=== PATIENT | male | born 1945 | race Caucasian/White ===

== ENCOUNTER → 2017-06-04 | Outpatient (CLI) | payer MEDICARE ==
[~2017-06-04] MED LIST: ASPI-496 PO; CARV12.52 PO; CHOL500015 PO; DOCU100T3 PO; LACT1CAP61 PO; LISI-170 PO; METO10TA2 PO; MULT-82 PO; NITR0.4T SL; OMEP-110 PO; POLY454P3 PO
[2017-06-04 12:50] LABS: ASPARTATE AMINO TRANSFERASE 11 U/L (15-37); BLOOD UREA NITROGEN 23 mg/dL (7-18)
== END | disposition home or self-care (01) ==
LOC: STAR 11:38
PROVIDERS: ATTEND Orthopaedic Surgery
DX: Z01.818 Encounter for other preprocedural examination (principal); M17.12 Unilateral primary osteoarthritis, left knee
CPT/HCPCS: 36415; 80053; 81003; 85025; 87081; 93005

== ENCOUNTER 2017-06-09 06:23 | Inpatient (IN) | payer MEDICARE ==
[~2017-06-09] VITALS: Ht 180.3 cm; Wt 112.5 kg
[2017-06-09] MEDS ORDERED: KETOROLAC 60 MG/2 ML ONE (06:45)
[2017-06-09] MEDS ORDERED: TRANEXAMIC ACID 100 MG/ML, 10ML ONE (06:45)
[2017-06-09] MEDS ORDERED: VANCOMYCIN 1,000 MG ONE (06:45)
[2017-06-09] MEDS ORDERED: ROPIvacaine/PF 0.2%, 20 ML ONE (06:45)
[2017-06-09] MEDS ORDERED: EPINEPHRINE 1 MG/ML, 1ML ONE (06:46)
[2017-06-09] MEDS ORDERED: SODIUM CHLORIDE 0.9% 50 ML ONE (06:46)
[2017-06-09] MEDS ORDERED: ROPIvacaine/PF 0.5%, 20 ML ONE (06:51)
[2017-06-09] MEDS ORDERED: LACTATED RINGERS 1,000 ML IV SCH (07:10)
[2017-06-09 07:12] VITALS: BP 108/70
[2017-06-09] MEDS ORDERED: LIDOCAINE 1%, 2ML SQ PRN (07:30)
[2017-06-09] MEDS ORDERED: MIDAZOLAM 1 MG/ML, 2ML ONE (08:01)
[2017-06-09] MEDS ORDERED: FENTANYL PF 250 MCG/5ML ONE (08:01)
[2017-06-09] MEDS ORDERED: CEFAZOLIN 1,000 MG ONE (09:06)
[2017-06-09] MEDS ORDERED: DEXAMETHASONE 4 MG/ML, 1ML ONE (09:06)
[2017-06-09] MEDS ORDERED: ONDANSETRON 2MG/ML, 2ML ONE (09:06)
[2017-06-09] MEDS ORDERED: PROPOFOL 10 MG/ML, 20ML ONE (09:06)
[2017-06-09] MEDS ORDERED: PROMETHAZINE 25 MG/ML, 1ML IV PRN (10:00)
[2017-06-09] MEDS ORDERED: EPHEDRINE 50 MG/ML, 1ML IVPush PRN (10:00)
[2017-06-09] MEDS ORDERED: METOPROLOL 1 MG/ML, 5ML IV PRN (10:00)
[2017-06-09] MEDS ORDERED: ONDANSETRON 2MG/ML, 2ML IVPush PRN (10:00)
[2017-06-09] MEDS ORDERED: HYDROcodone/APAP 7.5-325MG/15ML UDC PO PRN (10:00)
[2017-06-09] MEDS ORDERED: ACETAMINOPHEN 325 MG TABLET PO PRN (10:00)
[2017-06-09] MEDS ORDERED: LABETALOL 5MG/ML, 20ML IV PRN (10:00)
[2017-06-09] MEDS ORDERED: HYDROmorphone 1 MG/ML, 1ML IV PRN ×2 (10:00→11:00)
[2017-06-09] MEDS ORDERED: hydrALAzine 20 MG/ML, 1ML IV PRN (10:00)
[2017-06-09] MEDS ORDERED: FENTANYL PF 100 MCG/2ML IV PRN (10:00)
[2017-06-09] MEDS ORDERED: ALBUTEROL SULFATE 2.5 MG/3 ML NPPB PRN (10:00)
[2017-06-09] MEDS ORDERED: OXYcodone 5 MG/5 ML ORAL.SOL UDC PO PRN (10:00)
[2017-06-09] MEDS ORDERED: DIAZEPAM 5 MG TABLET PO PRN (11:00)
[2017-06-09] MEDS ORDERED: ALUMINUM/MAG/SIMETHICONE 30 ML UDC PO PRN (11:00)
[2017-06-09] MEDS ORDERED: ONDANSETRON 4 MG TABLET PO PRN (11:00)
[2017-06-09] MEDS ORDERED: PROMETHAZINE 12.5 MG SUPP PR PRN (11:00)
[2017-06-09] MEDS ORDERED: ONDANSETRON 2MG/ML, 2ML IV PRN (11:00)
[2017-06-09] MEDS ORDERED: DIPHENHYDRAMINE 50 MG CAPSULE PO PRN (11:00)
[2017-06-09] MEDS ORDERED: PROMETHAZINE 25 MG/ML, 1ML IM PRN (11:00)
[2017-06-09] MEDS ORDERED: BISACODYL 10 MG SUPP PR PRN (11:00)
[2017-06-09] MEDS ORDERED: ZOLPIDEM 5MG TABLET PO PRN (11:00)
[2017-06-09] MEDS: HYDROcodone/APAP 10/325 MG TABLET PO SCH ×4 (11:00→22:30)
[2017-06-09] MEDS ORDERED: SCOPOLAMINE PATCH, 1.5MG PATCH.TD72 TD SCH (11:00)
[2017-06-09] MEDS ORDERED: ACETAMINOPHEN 650 MG/20.3 ML UDC PO PRN (11:00)
[2017-06-09] MEDS ORDERED: TRANEXAMIC ACID 1,000 MG in SODIUM CHLORIDE 0.9% 100 ML IVPB ONE (11:15)
[2017-06-09] MEDS: DOCUSATE 100 MG CAPSULE PO SCH ×3 (12:00→22:13)
[2017-06-09] MEDS: MAGNESIUM HYDROXIDE 8%, 30ML UDC PO SCH (14:00)
[2017-06-09] MEDS: TAMSULOSIN 0.4 MG CAP.ER.24H PO SCH (14:48)
[2017-06-09] MEDS: D5%-0.45% NACL 1,000 ML IV SCH ×2 (14:49→23:07)
[2017-06-09 14:56] VITALS: BP 130/85
[2017-06-09] MEDS ORDERED: NITROGLYCERIN 0.4 MG BOTTLE (25 TABS) SL SCH (15:30)
[2017-06-09] MEDS: CEFAZOLIN PMX 2GM/50ML 50 ML IVPB SCH (17:45)
[2017-06-09] MEDS: METOCLOPRAMIDE 10MG TABLET PO SCH ×2 (17:45→22:13)
[2017-06-09] MEDS: SENNA/DOCUSATE TABLET PO SCH (17:45)
[2017-06-09 21:09] VITALS: BP 129/72
[2017-06-09] MEDS: PREGABALIN 75 MG CAPSULE PO SCH (22:13)
[2017-06-09] MEDS: CARVEDILOL 12.5 MG TABLET PO SCH (22:14)
[2017-06-09 22:15] VITALS: BP 127/65
[2017-06-10] MEDS: CEFAZOLIN PMX 2GM/50ML 50 ML IVPB SCH (01:06)
[2017-06-10 02:30] VITALS: BP 113/65
[2017-06-10] MEDS: HYDROcodone/APAP 10/325 MG TABLET PO SCH ×3 (02:30→10:30)
[2017-06-10 05:05] LABS: HEMATOCRIT 31.6 % (39.2-51.8); HEMOGLOBIN 10.4 g/dL (13.7-18.0)
[2017-06-10] MEDS ORDERED: DEXAMETHASONE 4 MG/ML, 1ML IVPush SCH (06:00)
[2017-06-10] MEDS: ASPIRIN 81 MG TABLET EC PO SCH (06:30)
[2017-06-10] MEDS: D5%-0.45% NACL 1,000 ML IV SCH ×3 (07:00→22:38)
[2017-06-10] MEDS: POLYETHYLENE GLYCOL 17 GM PACKET PO SCH (08:52)
[2017-06-10] MEDS: TAMSULOSIN 0.4 MG CAP.ER.24H PO SCH (08:52)
[2017-06-10] MEDS: OMEPRAZOLE 20 MG CAPSULE.DR PO SCH (08:52)
[2017-06-10] MEDS: PREGABALIN 75 MG CAPSULE PO SCH ×2 (08:52→21:24)
[2017-06-10] MEDS: LISINOPRIL 20 MG TABLET PO SCH (08:52)
[2017-06-10] MEDS: DOCUSATE 100 MG CAPSULE PO SCH ×3 (08:53→21:18)
[2017-06-10] MEDS: CARVEDILOL 12.5 MG TABLET PO SCH ×2 (08:53→21:26)
[2017-06-10] MEDS: SENNA/DOCUSATE TABLET PO SCH (08:53)
[2017-06-10] MEDS: METOCLOPRAMIDE 10MG TABLET PO SCH ×3 (08:53→21:19)
[2017-06-10] MEDS: MAGNESIUM HYDROXIDE 8%, 30ML UDC PO SCH (08:53)
[2017-06-10] MEDS: MULTIVITAMINS/MINERALS TABLET PO SCH (08:53)
[2017-06-10 08:59] VITALS: BP 118/78
[2017-06-10] MEDS: KETOROLAC 30 MG/1 ML IV SCH ×2 (10:57→18:44)
[2017-06-10] MEDS: HYDROcodone/APAP 10/325 MG TABLET PO PRN (13:24)
[2017-06-10 14:57] VITALS: BP 111/62
[2017-06-10 18:25] VITALS: BP 153/41
[2017-06-10 21:26] VITALS: BP 128/62
[2017-06-11 03:47] VITALS: BP 123/68
[2017-06-11 04:58] LABS: HEMATOCRIT 32.1 % (39.2-51.8); HEMOGLOBIN 10.7 g/dL (13.7-18.0)
[2017-06-11] MEDS: ASPIRIN 81 MG TABLET EC PO SCH (05:37)
[2017-06-11] MEDS: D5%-0.45% NACL 1,000 ML IV SCH ×3 (06:11→21:26)
[2017-06-11 08:00] VITALS: BP 120/65
[2017-06-11] MEDS: PREGABALIN 75 MG CAPSULE PO SCH ×2 (08:59→20:30)
[2017-06-11] MEDS: POLYETHYLENE GLYCOL 17 GM PACKET PO SCH (08:59)
[2017-06-11] MEDS: OMEPRAZOLE 20 MG CAPSULE.DR PO SCH (08:59)
[2017-06-11] MEDS: MAGNESIUM HYDROXIDE 8%, 30ML UDC PO SCH (08:59)
[2017-06-11] MEDS: CARVEDILOL 12.5 MG TABLET PO SCH ×2 (08:59→20:30)
[2017-06-11] MEDS: LISINOPRIL 20 MG TABLET PO SCH (09:00)
[2017-06-11] MEDS: SENNA/DOCUSATE TABLET PO SCH (09:00)
[2017-06-11] MEDS: METOCLOPRAMIDE 10MG TABLET PO SCH ×3 (09:00→20:30)
[2017-06-11] MEDS: MULTIVITAMINS/MINERALS TABLET PO SCH (09:00)
[2017-06-11] MEDS: TAMSULOSIN 0.4 MG CAP.ER.24H PO SCH (09:00)
[2017-06-11] MEDS: DOCUSATE 100 MG CAPSULE PO SCH ×3 (09:00→20:30)
[2017-06-11] MEDS: HYDROcodone/APAP 10/325 MG TABLET PO PRN (09:08)
[2017-06-11] MEDS ORDERED: HYDR-3144 PO (10:47)
[2017-06-11 10:50] LABS: HEMATOCRIT 32.8 % (39.2-51.8); HEMOGLOBIN 10.9 g/dL (13.7-18.0)
[2017-06-11 11:13] LABS: BLOOD UREA NITROGEN 16 mg/dL (7-18)
[2017-06-11 15:48] VITALS: BP 105/67
[2017-06-11 20:06] VITALS: BP 128/75
[2017-06-12 02:51] VITALS: BP 119/61
[2017-06-12 04:55] LABS: HEMATOCRIT 32.3 % (39.2-51.8); HEMOGLOBIN 10.8 g/dL (13.7-18.0)
[2017-06-12] MEDS: HYDROcodone/APAP 10/325 MG TABLET PO PRN (06:21)
[2017-06-12] MEDS: ASPIRIN 81 MG TABLET EC PO SCH (06:21)
[2017-06-12] MEDS: D5%-0.45% NACL 1,000 ML IV SCH (06:23)
[2017-06-12 06:32] VITALS: BP 120/65
[2017-06-12] MEDS: METOCLOPRAMIDE 10MG TABLET PO SCH (08:10)
[2017-06-12] MEDS: DOCUSATE 100 MG CAPSULE PO SCH (08:10)
[2017-06-12] MEDS: PREGABALIN 75 MG CAPSULE PO SCH (08:10)
[2017-06-12] MEDS: CARVEDILOL 12.5 MG TABLET PO SCH (08:10)
[2017-06-12] MEDS: POLYETHYLENE GLYCOL 17 GM PACKET PO SCH (08:10)
[2017-06-12] MEDS: OMEPRAZOLE 20 MG CAPSULE.DR PO SCH (08:10)
[2017-06-12] MEDS: TAMSULOSIN 0.4 MG CAP.ER.24H PO SCH (08:11)
[2017-06-12] MEDS: MULTIVITAMINS/MINERALS TABLET PO SCH (08:11)
[2017-06-12] MEDS: LISINOPRIL 20 MG TABLET PO SCH (08:11)
[2017-06-12] MEDS: MAGNESIUM HYDROXIDE 8%, 30ML UDC PO SCH (08:13)
[2017-06-12] MEDS ORDERED: SENNA/DOCUSATE TABLET PO SCH (09:00)
[2017-06-12 12:59] VITALS: BP 123/75
== END 2017-06-12 14:19 | disposition home or self-care (01) | DRG 469 ==
LOC: ORIP 06:23 → 4NOR 12:14 → DCLOUNGE 06-12 13:30
PROVIDERS: ADMIT Orthopaedic Surgery; ATTEND Orthopaedic Surgery
PROC: 0SRD0J9 Replacement of Left Knee Joint with Synthetic Substitute, Cemented, Open Approach (ICD-10-PCS; principal; 2017-06-09 09:15)
DX: M17.12 Unilateral primary osteoarthritis, left knee (principal); J96.01 Acute respiratory failure with hypoxia; I42.9 Cardiomyopathy, unspecified; E66.9 Obesity, unspecified; G47.33 Obstructive sleep apnea (adult) (pediatric); I10 Essential (primary) hypertension; I25.10 Atherosclerotic heart disease of native coronary artery without angina pectoris; K21.9 Gastro-esophageal reflux disease without esophagitis; K59.09 Other constipation; R14.0 Abdominal distension (gaseous); Z68.34 Body mass index [BMI] 34.0-34.9, adult; Z90.49 Acquired absence of other specified parts of digestive tract; I25.2 Old myocardial infarction; Z90.89 Acquired absence of other organs
CPT/HCPCS: 36415; 71010; 80048; 85014; 85018; 85025; C1713; J0171; J0690; J1100; J1885; J2250; J2405; J2704; J2795; J3010; J3370; C1776; J7120

== ENCOUNTER 2021-02-09 09:50 | Observation (INO) | payer MEDICARE ==
[~2021-02-09] VITALS: Ht 180.3 cm; Wt 104.2 kg
[~2021-02-09 09:50] MED LIST changes: +HYDR1TAB53 PO; +MULT-642 PO; -MULT-82 PO; -NITR0.4T SL; +NITR0.4T41 SL
[2021-02-09] MEDS ORDERED: PLEASE ENTER HEIGHT AND WEIGHT MC SCH (10:30)
[2021-02-09] MEDS: SODIUM CHLORIDE 0.9% 1,000 ML IV SCH ×3 (10:30→19:56)
[2021-02-09] MEDS ORDERED: AMIO100T4 PO (10:49)
[2021-02-09] MEDS ORDERED: SPIR25TA5 PO (10:49)
[2021-02-09] MEDS ORDERED: VITAMIN B12 IM (10:49)
[2021-02-09] MEDS ORDERED: PYRI60TA PO (10:49)
[2021-02-09] MEDS ORDERED: FURO20TA3 PO (10:49)
[2021-02-09] MEDS ORDERED: ATOR40TA78 PO (10:49)
[2021-02-09 10:57] VITALS: BP 126/73
[2021-02-09 11:28] LABS: ANION GAP 5 mmol/L (5-15); CALCIUM 8.8 mg/dL (8.5-10.1); CHLORIDE 111 mmol/L (98-107)
[2021-02-09] MEDS ORDERED: FENTANYL PF 100 MCG/2ML IV PRN (12:00)
[2021-02-09] MEDS ORDERED: morphine SULFATE 10 MG/ML, 1ML IVPush PRN (12:00)
[2021-02-09] MEDS ORDERED: DIAZEPAM 5 MG/ML, 2ML IVPush PRN (12:00)
[2021-02-09] MEDS ORDERED: ONDANSETRON 2MG/ML, 2ML IVPush PRN (12:00)
[2021-02-09] MEDS ORDERED: EPHEDRINE 50 MG/ML, 1ML IM PRN (12:00)
[2021-02-09] MEDS ORDERED: hydrALAzine 20 MG/ML, 1ML IV PRN (12:00)
[2021-02-09] MEDS ORDERED: EPHEDRINE 50 MG/ML, 1ML IVPush PRN (12:00)
[2021-02-09] MEDS ORDERED: OXYcodone 5 MG/5 ML ORAL.SOL UDC PO PRN (12:00)
[2021-02-09] MEDS ORDERED: DIPHENHYDRAMINE 50 MG/ML, 1ML IVPush PRN (12:00)
[2021-02-09] MEDS ORDERED: ACETAMINOPHEN 325 MG TABLET PO PRN ×2 (12:00→14:00)
[2021-02-09] MEDS ORDERED: PROMETHAZINE 25 MG/ML, 1ML IVPush PRN (12:00)
[2021-02-09] MEDS ORDERED: METOPROLOL 1 MG/ML, 5ML IV PRN (12:00)
[2021-02-09] MEDS ORDERED: FENTANYL PF 250 MCG/5ML ONE (12:05)
[2021-02-09] MEDS ORDERED: CEFAZOLIN 1,000 MG ONE (12:06)
[2021-02-09] MEDS ORDERED: LIDOCAINE 2%, 20ML ONE (12:06)
[2021-02-09] MEDS ORDERED: PROPOFOL 50 ML ONE (12:06)
[2021-02-09 12:13] LABS: BASOPHILS % (AUTO) 1 % (0-1); EOSINOPHILS % (AUTO) 1 % (1-7); LYMPHOCYTES % (AUTO) 16 % (22-44); MEAN CORPUSCULAR HGB CONC 33.4 g/dL (33.2-36.2); MEAN PLATELET VOLUME 9.4 fL (7.4-10.4); MONOCYTES % (AUTO) 9 % (2-9); NEUTROPHILS % (AUTO) 74 % (42-75); PLATELET COUNT 182 x10^3/uL (130-400); RED BLOOD COUNT 3.48 x10^6/uL (4.38-5.82); RED CELL DISTRIBUTION WIDTH 13.3 % (9.4-14.8)
[2021-02-09 12:15] LABS: MD NO
[2021-02-09] MEDS ORDERED: ONDANSETRON 2MG/ML, 2ML ONE (12:17)
[2021-02-09] MEDS ORDERED: DEXAMETHASONE 4 MG/ML, 1ML ONE (12:17)
[2021-02-09] MEDS ORDERED: ROCURONIUM 10 MG/ML,10ML ONE (12:17)
[2021-02-09] MEDS ORDERED: SUCCINYLCHOLINE 20 MG/ML, 10ML ONE (12:17)
[2021-02-09] MEDS ORDERED: HOLD MEDICATION MC PRN (14:00)
[2021-02-09] MEDS ORDERED: ZOLPIDEM 5MG TABLET PO PRN (14:00)
[2021-02-09] MEDS ORDERED: BISACODYL 5 MG EC TABLET PO PRN (14:00)
[2021-02-09] MEDS: PYRIDOSTIGMINE 60 MG TABLET PO SCH ×2 (17:00→21:08)
[2021-02-09] MEDS: METOCLOPRAMIDE 10MG TABLET PO SCH ×2 (17:00→21:08)
[2021-02-09 18:45] VITALS: BP 138/78
[2021-02-09] MEDS ORDERED: ATORVASTATIN 40 MG TABLET PO SCH (21:00)
[2021-02-09] MEDS: CEFAZOLIN PMX 1GM/50ML 50 ML IVPB SCH (21:07)
[2021-02-09] MEDS: SODIUM CHLORIDE FLUSH 10ML SYR IVF SCH (21:09)
[2021-02-10 03:32] VITALS: BP 121/84
[2021-02-10] MEDS: CEFAZOLIN PMX 1GM/50ML 50 ML IVPB SCH (06:14)
[2021-02-10 07:01] VITALS: BP 115/72
[2021-02-10] MEDS ORDERED: OMEPRAZOLE 20 MG CAPSULE.DR PO SCH (07:30)
[2021-02-10] MEDS: SODIUM CHLORIDE 0.9% 1,000 ML IV SCH (08:10)
[2021-02-10] MEDS: PYRIDOSTIGMINE 60 MG TABLET PO SCH (08:15)
[2021-02-10] MEDS: SODIUM CHLORIDE FLUSH 10ML SYR IVF SCH (08:16)
[2021-02-10] MEDS: METOCLOPRAMIDE 10MG TABLET PO SCH (08:16)
[2021-02-10] MEDS ORDERED: SPIRONOLACTONE 25 MG TABLET PO SCH (09:00)
[2021-02-10] MEDS ORDERED: FUROSEMIDE 20 MG TABLET PO SCH (09:00)
== END 2021-02-10 12:35 | disposition home or self-care (01) ==
LOC: CACL 09:50 → ORIP 13:48 → 5SO 15:02
PROVIDERS: ADMIT Internal Medicine Cardiovascular Disease; ATTEND Internal Medicine Cardiovascular Disease
DX: I47.2 Ventricular tachycardia (principal); Z20.822 Contact with and (suspected) exposure to COVID-19; I44.7 Left bundle-branch block, unspecified; I50.20 Unspecified systolic (congestive) heart failure; I42.8 Other cardiomyopathies; Z79.899 Other long term (current) drug therapy; Z95.810 Presence of automatic (implantable) cardiac defibrillator
CPT/HCPCS: 33225; 33264; 36005; 36415; 71045; 71046; 80048; 85025; 93005; 96365; 96366; C1769; C1779; C1882; C1887; C1892; C1900; G0378; J0330; J0690; J1100; J2405; J2704; J3010; J3490; Q9967; U0003; 33216

== ENCOUNTER 2021-07-26 07:41 | Outpatient (CLI) | payer MEDICARE ==
[~2021-07-26 07:41] MED LIST changes: +AMIO100T4 PO; +ATOR40TA78 PO; +FURO20TA3 PO; +PYRI60TA PO; +SPIR25TA5 PO; +VITAMIN B12 IM
== END 2021-07-26 23:59 | disposition home or self-care (01) ==
LOC: CFH 07:41
PROVIDERS: ATTEND Nurse Practitioner Family
DX: I42.9 Cardiomyopathy, unspecified (principal)
CPT/HCPCS: 93306